=== PATIENT | male | born 1965 | race Caucasian/White ===

== ENCOUNTER 2019-01-10 14:33 | Outpatient (CLI) | payer BC ==
--- NOTE | 2019-01-10 16:07 | ULT ---
SCROTAL ULTRASOUND: 01/10/19 INDICATIONS: Testicular pain. Scrotal swelling. Technologist states that the patient gives a ten year history of a right scrotal swelling previously described as hydrocele. Increasing pain and swelling over the past two weeks. No comparison studies. Both testicles are identified. Both testicles show normal sonographic appearance. Color Doppler with spectral analysis demonstrates normal and equal blood flow to both testicles. There is a large loculated fluid collection in the superolateral right scrotum which produces mass ef fect on the right testicle. There is fluid surrounding the right testicle consistent with a small to moderate hydrocele. This large fluid collection which appears loculated and circumscribed may represe nt a septated hydrocele. It may represent a separate cyst which could be epididymal in origin produci ng mass effect on the testicle. This large circumscribed cyst in the superolateral right scrotum dar ures up to 7 cm. There is a small left hydrocele. The left epididymis appears unremarkable. The right epididymis is not identified. IMPRESSION: 1. A large circumscribed cystic mass in the superolateral right scrotum producing mass effect on the right testicle. There is a small associated right hydrocele surrounding the right testicle. This large cystic mass could represent a large epididymal cyst or a separate loculated portion of the hyd rocele. 2. Small left hydrocele. POS: OFF
== END 2019-01-10 14:34 | disposition home or self-care (01) ==
LOC: SCSULT 14:33
PROVIDERS: ATTEND Family Medicine Sports Medicine
DX: N50.89 Other specified disorders of the male genital organs (principal); N43.3 Hydrocele, unspecified; L72.9 Follicular cyst of the skin and subcutaneous tissue, unspecified
CPT/HCPCS: 76870; 93976

== ENCOUNTER 2022-03-30 17:30 | Outpatient (CLI) | payer BC | END 2022-03-30 17:31 | disposition home or self-care (01) | LOC: SLEEPLAB 17:30 | PROVIDERS: ATTEND Specialist | DX: G47.33 Obstructive sleep apnea (adult) (pediatric) (principal); R53.83 Other fatigue; E66.9 Obesity, unspecified; K21.9 Gastro-esophageal reflux disease without esophagitis; R06.83 Snoring; F41.9 Anxiety disorder, unspecified; I10 Essential (primary) hypertension | CPT/HCPCS: 95800 ==